=== PATIENT | female | born 2000 | race Two or more races ===

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

== ENCOUNTER 2019-04-13 04:38 | Emergency (ER) | payer MEDICAID ==
[~2019-04-13] VITALS: Ht 157.5 cm; Wt 54.4 kg
[2019-04-13 07:21] VITALS: BP 112/72
== END 2019-04-13 07:21 | disposition home or self-care (01) ==
LOC: ER 04:38
DX: M94.0 Chondrocostal junction syndrome [Tietze] (principal); R07.89 Other chest pain
CPT/HCPCS: 71111; 81025